=== PATIENT | male | born 1970 | race Hispanic/Latino ===

== ENCOUNTER 2024-05-07 18:42 | Inpatient (IN) | payer OTHER ==
[~2024-05-07] VITALS: Ht 170.2 cm; Wt 69.4 kg
[2024-05-07 19:35] LABS: BASOPHILS % 0.3 % (0.0-1.0); EOSINOPHILS # (AUTO) 0.1 (0.0-0.4); EOSINOPHILS % 0.6 % (0.0-6.0); HEMOGLOBIN 9.5 g/dL (14.0-18.0); LYMPHOCYTES # (AUTO) 1.8 (1.0-3.2); LYMPHOCYTES % 12.2 % (18.0-39.1); MEAN CORPUSCULAR HEMOGLOBIN 30.4 pg (28-32); MEAN CORPUSCULAR HGB CONC 32.8 g/dL (31-35); MEAN CORPUSCULAR VOLUME 92.7 fL (81-99); MONOCYTES # (AUTO) 1.3 (0.2-0.8); MONOCYTES % 8.9 % (4.4-11.3); NEUTROPHILS # (AUTO) 11.2 (2.1-6.9); NEUTROPHILS % 77.4 % (38.7-80.0); PLATELET COUNT 333 x10e3/uL (140-360); RED BLOOD COUNT 3.13 x10e6/uL (4.3-5.7); RED CELL DISTRIBUTION WIDTH 12.7 % (11.7-14.4); WHITE BLOOD COUNT 14.49 x10e3/uL (4.8-10.8)
[2024-05-07 19:58] LABS: ALBUMIN 2.5 g/dL (3.5-5.0); ALBUMIN/GLOBULIN RATIO 0.4 (0.8-2.0); ANION GAP 16.5 mmol/L (8-16); BILIRUBIN,TOTAL 0.4 mg/dL (0.2-1.2); CALCIUM 9.5 mg/dL (8.4-10.2); CREATININE, SERUM 1.94 mg/dL (0.72-1.25); POTASSIUM 4.5 mmol/L (3.5-5.1); TOTAL PROTEIN 8.2 g/dL (6.5-8.1)
[2024-05-07] MEDS: SODIUM CHLORIDE 0.9% 1000ML 1,000 ML IV STA (20:38)
[2024-05-07] MEDS: ACETAMINOPHEN 325 MG TAB PO STA (20:39)
[2024-05-07 21:15] VITALS: PULSE 96; RESP 16
[2024-05-07 21:27] VITALS: TEMP 100
[2024-05-07] MEDS: SODIUM CHLORIDE 0.9% 1000ML 1,000 ML IV SCH (22:19)
[2024-05-07 23:14] VITALS: BP 116/67; PULSE 79; RESP 18; TEMP 99.3; O2SAT 100
[2024-05-07] MEDS ORDERED: METFORMIN HCL500 MG PO (23:35)
[2024-05-07] MEDS: ONDANSETRON HCL INJ 2MG/ML 2ML 2 MG/ML VIAL IV PRN (23:50)
[2024-05-07] MEDS: Morphine 4mg INJECTION 4 MG/ML INJ IV PRN (23:51)
[2024-05-08] VITALS (10 sets, daily range): BP systolic 112–139; BP diastolic 63–94; PULSE 67–96; RESP 16–18; TEMP 97.6–100.6; O2SAT 95–100
[2024-05-08] MEDS ORDERED: DOCUSATE SODIUM 100 MG CAP PO PRN (00:15)
[2024-05-08] MEDS ORDERED: DEXTROSE 50% SYRINGE 50 ML IV PRN (00:15)
[2024-05-08] MEDS ORDERED: GUAIFENESIN/DEXTROMETHORPHAN LIQD 5 ML UDC PO PRN (00:15)
[2024-05-08] MEDS ORDERED: HYDRALAZINE HCL 20 MG/ML VIAL IV PRN (00:15)
[2024-05-08] MEDS ORDERED: MAGNESIUM/ALUMINUM/SIMETHICONE 30 ML UDC PO PRN (00:15)
[2024-05-08] MEDS ORDERED: Vancomycin IV 1 GM in SODIUM CHLORIDE 0.9% 250ML 250 ML IV ONE (00:30)
[2024-05-08] MEDS: Vancomycin IV 1 GM in SODIUM CHLORIDE 0.9% 250ML 250 ML IV SCH (03:48)
[2024-05-08 06:49] LABS: ALBUMIN 1.9 g/dL (3.5-5.0); ALBUMIN/GLOBULIN RATIO 0.4 (0.8-2.0); ANION GAP 11.1 mmol/L (8-16); BILIRUBIN,TOTAL 0.3 mg/dL (0.2-1.2); CALCIUM 8.3 mg/dL (8.4-10.2); CREATININE, SERUM 1.52 mg/dL (0.72-1.25); POTASSIUM 4.1 mmol/L (3.5-5.1); TOTAL PROTEIN 6.4 g/dL (6.5-8.1)
[2024-05-08 07:16] LABS: BASOPHILS # (AUTO) 0.1 (0.0-0.1); BASOPHILS % 0.5 % (0.0-1.0); EOSINOPHILS # (AUTO) 0.3 (0.0-0.4); EOSINOPHILS % 2.7 % (0.0-6.0); HEMATOCRIT 24.2 % (38.2-49.6); HEMOGLOBIN 7.8 g/dL (14.0-18.0); LYMPHOCYTES # (AUTO) 2.1 (1.0-3.2); LYMPHOCYTES % 17.7 % (18.0-39.1); MEAN CORPUSCULAR HEMOGLOBIN 30.1 pg (28-32); MEAN CORPUSCULAR HGB CONC 32.2 g/dL (31-35); MEAN CORPUSCULAR VOLUME 93.4 fL (81-99); MONOCYTES # (AUTO) 1.1 (0.2-0.8); NEUTROPHILS # (AUTO) 8.1 (2.1-6.9); NEUTROPHILS % 69.4 % (38.7-80.0); PLATELET COUNT 309 x10e3/uL (140-360); RED BLOOD COUNT 2.59 x10e6/uL (4.3-5.7); RED CELL DISTRIBUTION WIDTH 12.7 % (11.7-14.4); WHITE BLOOD COUNT 11.64 x10e3/uL (4.8-10.8)
[2024-05-08] MEDS: MULTIVITAMINS/MINERALS TAB PO SCH (09:18)
[2024-05-08] MEDS: INSULIN REGULAR, HUMAN 100 UNIT/1 ML SQ SCH (09:24)
[2024-05-08] MEDS: Morphine 4mg INJECTION 4 MG/ML INJ IV PRN (10:08)
[2024-05-08] MEDS: CHLORASEPTIC SPRAY 177 ML BTL MM PRN (12:14)
[2024-05-08] MEDS: ENOXAPARIN SOD INJ 40 MG/0.4 ML SYR SC SCH (17:22)
[2024-05-08] MEDS: POVIDONE IODINE 10% 120 ML BTL EXT SCH (18:09)
[2024-05-09] MEDS: ACETAMINOPHEN 325 MG TAB PO PRN (00:32)
[2024-05-09 03:21] VITALS: BP 119/75; PULSE 73; RESP 18; TEMP 98.5; O2SAT 96
[2024-05-09 08:01] VITALS: BP 106/69; PULSE 78; RESP 16; TEMP 98.1; O2SAT 99
[2024-05-09 08:07] LABS: BASOPHILS # (AUTO) 0.1 (0.0-0.1); BASOPHILS % 0.7 % (0.0-1.0); EOSINOPHILS # (AUTO) 0.4 (0.0-0.4); EOSINOPHILS % 3.8 % (0.0-6.0); HEMATOCRIT 24.4 % (38.2-49.6); HEMOGLOBIN 7.6 g/dL (14.0-18.0); LYMPHOCYTES # (AUTO) 1.5 (1.0-3.2); LYMPHOCYTES % 12.8 % (18.0-39.1); MEAN CORPUSCULAR HEMOGLOBIN 29.7 pg (28-32); MEAN CORPUSCULAR HGB CONC 31.1 g/dL (31-35); MEAN CORPUSCULAR VOLUME 95.3 fL (81-99); MONOCYTES % 8.9 % (4.4-11.3); NEUTROPHILS # (AUTO) 8.3 (2.1-6.9); NEUTROPHILS % 73.1 % (38.7-80.0); PLATELET COUNT 291 x10e3/uL (140-360); RED BLOOD COUNT 2.56 x10e6/uL (4.3-5.7); RED CELL DISTRIBUTION WIDTH 12.6 % (11.7-14.4); WHITE BLOOD COUNT 11.37 x10e3/uL (4.8-10.8)
[2024-05-09 08:27] LABS: ANION GAP 12.4 mmol/L (8-16); CALCIUM 8.4 mg/dL (8.4-10.2); CREATININE, SERUM 1.44 mg/dL (0.72-1.25); POTASSIUM 4.4 mmol/L (3.5-5.1)
[2024-05-09 08:30] VITALS: BP 106/69; PULSE 78; RESP 16; TEMP 98.1; O2SAT 99
[2024-05-09 08:47] LABS: FERRITIN 677.57 ng/mL (21.81-274.66)
[2024-05-09 12:25] VITALS: BP 124/78; PULSE 78; RESP 16; TEMP 98.1; O2SAT 99
[2024-05-09] MEDS: IRON SUCROSE 100 MG in SODIUM CHLORIDE 0.9% 100 ML IV ONE (15:47)
[2024-05-09 15:53] VITALS: BP 121/77; PULSE 78; RESP 16; TEMP 98.3; O2SAT 98
[2024-05-09 19:53] VITALS: BP 128/72; PULSE 85; RESP 21; TEMP 98.6; O2SAT 100
[2024-05-10] VITALS (8 sets, daily range): BP systolic 129–157; BP diastolic 71–89; PULSE 75–86; RESP 17–20; TEMP 97.5–98.6; O2SAT 97–100
[2024-05-10] MEDS ORDERED: POLYETHYLENE GLYCOL 3350 17 GM PACK PO PRN (16:30)
[2024-05-10] MEDS ORDERED: ALBUTEROL SULF 0.083% NEB SOLN 3 ML NEB NEB PRN (16:30)
[2024-05-10] MEDS: DOCUSATE SODIUM 100 MG CAP PO SCH (17:00)
[2024-05-11] VITALS (10 sets, daily range): BP systolic 134–161; BP diastolic 76–92; PULSE 74–89; RESP 16–18; TEMP 97.9–98.9; O2SAT 95–100
[2024-05-11] MEDS: FERROUS SULFATE 325 MG TAB PO SCH (09:00)
[2024-05-11] MEDS ORDERED: TROLAMINE SALICYLATE 35.4 GM CR TP SCH (17:00)
[2024-05-11] MEDS: TROLAMINE SALICYLATE 35.4 GM CR TP SCH (17:24)
[2024-05-12 04:00] VITALS: BP 156/80; PULSE 76; RESP 17; TEMP 97.8; O2SAT 98
[2024-05-12 06:32] LABS: BASOPHILS # (AUTO) 0.1 (0.0-0.1); BASOPHILS % 0.8 % (0.0-1.0); EOSINOPHILS # (AUTO) 0.3 (0.0-0.4); HEMATOCRIT 26.2 % (38.2-49.6); HEMOGLOBIN 8.4 g/dL (14.0-18.0); LYMPHOCYTES % 18.9 % (18.0-39.1); MEAN CORPUSCULAR HEMOGLOBIN 29.7 pg (28-32); MEAN CORPUSCULAR HGB CONC 32.1 g/dL (31-35); MEAN CORPUSCULAR VOLUME 92.6 fL (81-99); MONOCYTES # (AUTO) 0.7 (0.2-0.8); MONOCYTES % 6.9 % (4.4-11.3); NEUTROPHILS # (AUTO) 7.3 (2.1-6.9); NEUTROPHILS % 68.9 % (38.7-80.0); RED BLOOD COUNT 2.83 x10e6/uL (4.3-5.7); RED CELL DISTRIBUTION WIDTH 12.4 % (11.7-14.4); WHITE BLOOD COUNT 10.53 x10e3/uL (4.8-10.8)
[2024-05-12 06:36] LABS: PLATELET COUNT 414 x10e3/uL (140-360)
[2024-05-12] MEDS ORDERED: MIDAZOLAM HCL 2 MG/2 ML VIAL ONE (07:00)
[2024-05-12] MEDS ORDERED: FENTANYL CITRATE/PF 100MCG/2 ML INJ ONE (07:00)
[2024-05-12 07:02] LABS: ANION GAP 15.2 mmol/L (8-16); CALCIUM 9.2 mg/dL (8.4-10.2); CREATININE, SERUM 1.23 mg/dL (0.72-1.25); POTASSIUM 4.2 mmol/L (3.5-5.1)
[2024-05-12] MEDS ORDERED: ACETAMINOPHEN 1000 MG/100 ML 100 ML IV ONE (07:05)
[2024-05-12] MEDS ORDERED: BUPIVACAINE HCL 0.5% INJ 30 ML VIAL INJ ONE (07:53)
[2024-05-12] MEDS: HYDROMORPHONE 1MG/1ML INJ ONE (08:38)
[2024-05-12 09:46] VITALS: PULSE 76; RESP 18; O2SAT 98
[2024-05-12] MEDS ORDERED: SEVOFLURANE INHAL SOLN 250 ML PEN BTL ONE (11:33)
[2024-05-12] MEDS ORDERED: ONDANSETRON HCL INJ 2MG/ML 2ML 2 MG/ML VIAL ONE (11:33)
[2024-05-12] MEDS ORDERED: DEXAMETHASONE SOD PHOS INJ 4 MG/ML SDV ONE (11:33)
[2024-05-12] MEDS ORDERED: LIDOCAINE HCL 2% LOCAL INJ 5 ML SDV VIAL INJ ONE (11:33)
[2024-05-12] MEDS ORDERED: PROPOFOL IV EMULSION 10 MG/ML 20 ML VIAL ONE (11:33)
[2024-05-12] MEDS ORDERED: EPHEDRINE SULFATE INJ 50 MG/ML VIAL ONE (11:33)
[2024-05-12 13:50] VITALS: BP 153/83; PULSE 85; RESP 17; TEMP 97.5; O2SAT 97
[2024-05-12 20:00] VITALS: BP 156/93; PULSE 85; RESP 18; TEMP 98; O2SAT 99
[2024-05-12 20:16] VITALS: PULSE 82; RESP 16; O2SAT 99
[2024-05-12 21:00] VITALS: BP 156/93; PULSE 85; RESP 18; TEMP 98; O2SAT 99
[2024-05-13] VITALS (10 sets, daily range): BP systolic 139–169; BP diastolic 72–98; PULSE 76–95; RESP 16–20; TEMP 97.5–98.7; O2SAT 96–100
[2024-05-13] MEDS: SODIUM CHLORIDE 0.9% 250ML 250 ML ONE (02:12)
[2024-05-13] MEDS: Morphine 2mg Syringe 2 MG/ML SYR ONE (05:15)
[2024-05-13 06:01] LABS: BASOPHILS % 0.3 % (0.0-1.0); EOSINOPHILS % 0.1 % (0.0-6.0); HEMATOCRIT 25.6 % (38.2-49.6); HEMOGLOBIN 8.2 g/dL (14.0-18.0); LYMPHOCYTES # (AUTO) 1.9 (1.0-3.2); LYMPHOCYTES % 12.1 % (18.0-39.1); MEAN CORPUSCULAR HEMOGLOBIN 30.1 pg (28-32); MEAN CORPUSCULAR VOLUME 94.1 fL (81-99); MONOCYTES # (AUTO) 1.1 (0.2-0.8); MONOCYTES % 7.4 % (4.4-11.3); NEUTROPHILS % 78.7 % (38.7-80.0); PLATELET COUNT 438 x10e3/uL (140-360); RED BLOOD COUNT 2.72 x10e6/uL (4.3-5.7); RED CELL DISTRIBUTION WIDTH 12.4 % (11.7-14.4); WHITE BLOOD COUNT 15.23 x10e3/uL (4.8-10.8)
[2024-05-13 06:29] LABS: ALBUMIN 2.1 g/dL (3.5-5.0); ALBUMIN/GLOBULIN RATIO 0.4 (0.8-2.0); ANION GAP 14.1 mmol/L (8-16); BILIRUBIN,TOTAL 0.2 mg/dL (0.2-1.2); CALCIUM 9.1 mg/dL (8.4-10.2); CREATININE, SERUM 1.35 mg/dL (0.72-1.25); POTASSIUM 4.1 mmol/L (3.5-5.1); TOTAL PROTEIN 7.3 g/dL (6.5-8.1)
[2024-05-13 14:44] LABS: FREE T4 (FREE THYROXINE) 1.16 ng/dL (0.8-1.8); THYROID STIMULATING HORMONE 1.467 uIU/mL (0.350-4.940)
[2024-05-13] MEDS: INSULIN LISPRO 100 UNIT/1 ML 3ML VIAL SQ SCH ×2 (16:30→17:21)
[2024-05-13] MEDS: Morphine 2mg Syringe 2 MG/ML SYR IV PRN (20:14)
[2024-05-13] MEDS ORDERED: INSULIN GLARGINE 100 UNITS/ML VIAL SQ SCH (21:00)
[2024-05-13] MEDS: INSULIN GLARGINE 100 UNITS/ML VIAL SQ SCH (21:00)
[2024-05-14] VITALS (8 sets, daily range): BP systolic 131–145; BP diastolic 70–79; PULSE 80–89; RESP 17–20; TEMP 97.8–98.8; O2SAT 95–100
[2024-05-14] MEDS: INSULIN LISPRO 100 UNIT/1 ML 3ML VIAL SQ SCH (16:30)
[2024-05-14] MEDS: MELATONIN 3 MG TAB PO PRN (20:34)
[2024-05-15] VITALS (9 sets, daily range): BP systolic 108–127; BP diastolic 52–76; PULSE 75–95; RESP 18–19; TEMP 97.7–98.9; O2SAT 95–100
[2024-05-15 06:06] LABS: BASOPHILS # (AUTO) 0.1 (0.0-0.1); BASOPHILS % 0.5 % (0.0-1.0); EOSINOPHILS # (AUTO) 0.2 (0.0-0.4); EOSINOPHILS % 1.5 % (0.0-6.0); HEMATOCRIT 22.5 % (38.2-49.6); HEMOGLOBIN 7.2 g/dL (14.0-18.0); LYMPHOCYTES # (AUTO) 2.5 (1.0-3.2); LYMPHOCYTES % 16.5 % (18.0-39.1); MEAN CORPUSCULAR HEMOGLOBIN 30.4 pg (28-32); MEAN CORPUSCULAR VOLUME 94.9 fL (81-99); MONOCYTES # (AUTO) 1.3 (0.2-0.8); MONOCYTES % 8.5 % (4.4-11.3); NEUTROPHILS # (AUTO) 10.6 (2.1-6.9); NEUTROPHILS % 71.2 % (38.7-80.0); PLATELET COUNT 435 x10e3/uL (140-360); RED BLOOD COUNT 2.37 x10e6/uL (4.3-5.7); RED CELL DISTRIBUTION WIDTH 12.9 % (11.7-14.4); WHITE BLOOD COUNT 14.93 x10e3/uL (4.8-10.8)
[2024-05-15] MEDS: MEROPENEM 1 GM in SODIUM CHLORIDE 0.9% 100 ML IV SCH (16:19)
[2024-05-15] MEDS: HYDROCODONE/APAP 5MG-325MG TAB PO PRN (22:01)
[2024-05-16] VITALS (9 sets, daily range): BP systolic 119–144; BP diastolic 72–91; PULSE 76–89; RESP 16–20; TEMP 97.5–98.3; O2SAT 96–100
[2024-05-16] MEDS: INSULIN LISPRO 100 UNIT/1 ML 3ML VIAL SQ SCH (16:46)
[2024-05-16] MEDS: INSULIN GLARGINE 100 UNITS/ML VIAL SQ SCH (20:49)
[2024-05-17] VITALS (11 sets, daily range): BP systolic 99–158; BP diastolic 59–91; PULSE 70–89; RESP 16–18; TEMP 97.3–98.5; O2SAT 96–100
[2024-05-17] MEDS: Morphine 2mg Syringe 2 MG/ML SYR IV PRN (00:56)
[2024-05-17 06:10] LABS: BASOPHILS # (AUTO) 0.1 (0.0-0.1); BASOPHILS % 0.9 % (0.0-1.0); EOSINOPHILS # (AUTO) 0.3 (0.0-0.4); EOSINOPHILS % 3.8 % (0.0-6.0); HEMATOCRIT 22.1 % (38.2-49.6); LYMPHOCYTES # (AUTO) 2.5 (1.0-3.2); MEAN CORPUSCULAR HEMOGLOBIN 29.6 pg (28-32); MEAN CORPUSCULAR HGB CONC 31.2 g/dL (31-35); MEAN CORPUSCULAR VOLUME 94.8 fL (81-99); MONOCYTES # (AUTO) 0.7 (0.2-0.8); MONOCYTES % 8.7 % (4.4-11.3); NEUTROPHILS # (AUTO) 4.4 (2.1-6.9); NEUTROPHILS % 54.4 % (38.7-80.0); PLATELET COUNT 471 x10e3/uL (140-360); RED BLOOD COUNT 2.33 x10e6/uL (4.3-5.7); WHITE BLOOD COUNT 8.15 x10e3/uL (4.8-10.8)
[2024-05-17 06:15] LABS: HEMOGLOBIN 6.9 g/dL (14.0-18.0)
[2024-05-17] MEDS: SODIUM CHLORIDE 0.9% 250ML 250 ML IV ONE (11:20)
[2024-05-18] VITALS (7 sets, daily range): BP systolic 113–148; BP diastolic 68–82; PULSE 71–85; RESP 16–19; TEMP 97.6–98.2; O2SAT 97–100
[2024-05-18 05:59] LABS: BASOPHILS % 0.4 % (0.0-1.0); EOSINOPHILS # (AUTO) 0.4 (0.0-0.4); EOSINOPHILS % 4.9 % (0.0-6.0); HEMATOCRIT 28.9 % (38.2-49.6); LYMPHOCYTES # (AUTO) 2.2 (1.0-3.2); LYMPHOCYTES % 27.5 % (18.0-39.1); MEAN CORPUSCULAR HEMOGLOBIN 29.5 pg (28-32); MEAN CORPUSCULAR HGB CONC 31.1 g/dL (31-35); MEAN CORPUSCULAR VOLUME 94.8 fL (81-99); MONOCYTES # (AUTO) 0.6 (0.2-0.8); MONOCYTES % 7.2 % (4.4-11.3); NEUTROPHILS # (AUTO) 4.6 (2.1-6.9); NEUTROPHILS % 58.5 % (38.7-80.0); PLATELET COUNT 522 x10e3/uL (140-360); RED BLOOD COUNT 3.05 x10e6/uL (4.3-5.7); RED CELL DISTRIBUTION WIDTH 13.2 % (11.7-14.4); WHITE BLOOD COUNT 7.88 x10e3/uL (4.8-10.8)
[2024-05-18] MEDS: SILVER NITRATE SWABS TOP ONE (13:30)
[2024-05-18] MEDS ORDERED: MEROPENEM1 GM IV (16:05)
[2024-05-18] MEDS ORDERED: INSULIN GL100 UNIT/2 SQ (16:05)
[2024-05-18] MEDS ORDERED: INSULIN AS100 UNIT/3 SQ (16:05)
[2024-05-18] MEDS ORDERED: Tylenol #3 PO (16:05)
[2024-05-18] MEDS ORDERED: FERROUS SULFAT325 MG PO (16:10)
[2024-05-18] MEDS ORDERED: ONDANSETRON HCL 4 MG ORAL DISINTEGRATING TAB PO PRN (17:30)
[2024-05-18] MEDS ORDERED: INSULIN GLARGINE 100 UNITS/ML VIAL SQ SCH (21:00)
== END 2024-05-18 18:30 | disposition home or self-care (01) | DRG 854 ==
LOC: ER 18:49 → ERHOLD 19:48 → MED/SURG3 21:44
PROVIDERS: ADMIT Internal Medicine Critical Care Medicine; ATTEND Internal Medicine Critical Care Medicine
PROC: 3E0333Z Introduction of Anti-inflammatory into Peripheral Vein, Percutaneous Approach (ICD-10-PCS; 2024-05-07)
PROC: 0KBW0ZZ Excision of Left Foot Muscle, Open Approach (ICD-10-PCS; 2024-05-12)
PROC: 0Y6W0Z0 Detachment at Left 4th Toe, Complete, Open Approach (ICD-10-PCS; principal; 2024-05-12 07:17)
PROC: 0Y6X0Z0 Detachment at Right 5th Toe, Complete, Open Approach (ICD-10-PCS; 2024-05-12 07:17)
PROC: 02HV33Z Insertion of Infusion Device into Superior Vena Cava, Percutaneous Approach (ICD-10-PCS; 2024-05-15)
PROC: 30233N1 Transfusion of Nonautologous Red Blood Cells into Peripheral Vein, Percutaneous Approach (ICD-10-PCS; 2024-05-17)
DX: A41.9 Sepsis, unspecified organism (principal); E11.52 Type 2 diabetes mellitus with diabetic peripheral angiopathy with gangrene; E46 Unspecified protein-calorie malnutrition; N17.9 Acute kidney failure, unspecified; L03.116 Cellulitis of left lower limb; E11.69 Type 2 diabetes mellitus with other specified complication; M86.9 Osteomyelitis, unspecified; E11.621 Type 2 diabetes mellitus with foot ulcer; L02.612 Cutaneous abscess of left foot; L97.528 Non-pressure chronic ulcer of other part of left foot with other specified severity; B95.1 Streptococcus, group B, as the cause of diseases classified elsewhere; B96.5 Pseudomonas (aeruginosa) (mallei) (pseudomallei) as the cause of diseases classified elsewhere; E88.09 Other disorders of plasma-protein metabolism, not elsewhere classified; I12.9 Hypertensive chronic kidney disease with stage 1 through stage 4 chronic kidney disease, or unspecified chronic kidney disease; E11.22 Type 2 diabetes mellitus with diabetic chronic kidney disease; E11.40 Type 2 diabetes mellitus with diabetic neuropathy, unspecified; N18.2 Chronic kidney disease, stage 2 (mild); D63.1 Anemia in chronic kidney disease; M19.011 Primary osteoarthritis, right shoulder; Z83.3 Family history of diabetes mellitus; Z68.24 Body mass index [BMI] 24.0-24.9, adult
CPT/HCPCS: 36415; 36569; 71045; 71046; 80048; 80053; 80202; 82728; 82948; 83036; 83540; 83605; 83690; 84439; 84443; 84466; 85025; 86850; 86900; 86920; 87040; 87071; 87075; 87186; 87205; 88304; 88305; 88311; 93005; 93971; 94799; 97605; 97606; 99252; 99284; J1100; J1171; J1650; J1756; J1815; J2003; J2185; J2250; J2270; J2405; J2543; J7030; J7050; P9016

== ENCOUNTER → 2024-05-20 | Outpatient (REF) | payer OTHER ==
[~2024-05-20] MED LIST: FERROUS SULFAT325 MG PO; INSULIN AS100 UNIT/3 SQ; INSULIN GL100 UNIT/2 SQ; MEROPENEM1 GM IV; METFORMIN HCL500 MG PO; Tylenol #3 PO
== END ==
LOC: WCC 12:08
PROVIDERS: ATTEND Internal Medicine Infectious Disease
DX: E11.621 Type 2 diabetes mellitus with foot ulcer (principal); M86.172 Other acute osteomyelitis, left ankle and foot; L97.524 Non-pressure chronic ulcer of other part of left foot with necrosis of bone

== ENCOUNTER → 2024-05-22 | Outpatient (REF) | payer OTHER | LOC: WCC 10:04 | PROVIDERS: ATTEND Internal Medicine Infectious Disease | DX: E11.621 Type 2 diabetes mellitus with foot ulcer (principal); M86.172 Other acute osteomyelitis, left ankle and foot; L97.524 Non-pressure chronic ulcer of other part of left foot with necrosis of bone ==

== ENCOUNTER → 2024-05-25 | Outpatient (REF) | payer OTHER ==
[~2024-05-25] MED LIST changes: +MINERAL OIL/PETROLAT/GLYCERI 6OZ BTL ONE
== END ==
LOC: WCC 13:45
PROVIDERS: ATTEND Internal Medicine Infectious Disease
DX: E11.621 Type 2 diabetes mellitus with foot ulcer (principal); L97.524 Non-pressure chronic ulcer of other part of left foot with necrosis of bone
CPT/HCPCS: 36415; 82948

== ENCOUNTER → 2024-05-27 | Outpatient (REF) | payer OTHER ==
[~2024-05-27] MED LIST changes: -MINERAL OIL/PETROLAT/GLYCERI 6OZ BTL ONE
== END ==
LOC: WCC 10:16
PROVIDERS: ATTEND Internal Medicine Infectious Disease
DX: E11.621 Type 2 diabetes mellitus with foot ulcer (principal); L97.524 Non-pressure chronic ulcer of other part of left foot with necrosis of bone

== ENCOUNTER → 2024-05-29 | Outpatient (REF) | payer OTHER | LOC: WCC 13:42 | PROVIDERS: ATTEND Internal Medicine Infectious Disease | DX: E11.621 Type 2 diabetes mellitus with foot ulcer (principal); L97.524 Non-pressure chronic ulcer of other part of left foot with necrosis of bone ==

== ENCOUNTER → 2024-06-02 | Outpatient (REF) | payer OTHER | LOC: WCC 11:12 | PROVIDERS: ATTEND Nurse Practitioner Family | DX: E11.621 Type 2 diabetes mellitus with foot ulcer (principal); L97.524 Non-pressure chronic ulcer of other part of left foot with necrosis of bone ==

== ENCOUNTER → 2024-06-04 | Outpatient (REF) | payer OTHER | LOC: WCC 08:00 | PROVIDERS: ATTEND Nurse Practitioner Family | DX: E11.621 Type 2 diabetes mellitus with foot ulcer (principal); M86.172 Other acute osteomyelitis, left ankle and foot; L97.524 Non-pressure chronic ulcer of other part of left foot with necrosis of bone ==

== ENCOUNTER → 2024-06-09 | Outpatient (REF) | payer OTHER | LOC: WCC 09:15 | PROVIDERS: ATTEND Internal Medicine Infectious Disease | DX: E11.621 Type 2 diabetes mellitus with foot ulcer (principal); L97.524 Non-pressure chronic ulcer of other part of left foot with necrosis of bone ==

== ENCOUNTER → 2024-06-12 | Outpatient (REF) | payer OTHER | LOC: WCC 09:11 | PROVIDERS: ATTEND Plastic Surgery | DX: E11.621 Type 2 diabetes mellitus with foot ulcer (principal); M86.172 Other acute osteomyelitis, left ankle and foot; L97.524 Non-pressure chronic ulcer of other part of left foot with necrosis of bone ==

== ENCOUNTER → 2024-06-16 | Outpatient (REF) | payer OTHER | LOC: WCC 12:17 | PROVIDERS: ATTEND Nurse Practitioner Family | DX: E11.621 Type 2 diabetes mellitus with foot ulcer (principal); M86.172 Other acute osteomyelitis, left ankle and foot; L97.524 Non-pressure chronic ulcer of other part of left foot with necrosis of bone ==

== ENCOUNTER → 2024-06-19 | Outpatient (REF) | payer OTHER | LOC: WCC 09:41 | PROVIDERS: ATTEND Internal Medicine Infectious Disease | DX: E11.621 Type 2 diabetes mellitus with foot ulcer (principal); M86.172 Other acute osteomyelitis, left ankle and foot; L97.524 Non-pressure chronic ulcer of other part of left foot with necrosis of bone ==

== ENCOUNTER → 2024-06-23 | Outpatient (REF) | payer OTHER | LOC: WCC 10:04 | PROVIDERS: ATTEND Internal Medicine Infectious Disease | DX: E11.621 Type 2 diabetes mellitus with foot ulcer (principal); M86.172 Other acute osteomyelitis, left ankle and foot; L97.524 Non-pressure chronic ulcer of other part of left foot with necrosis of bone ==

== ENCOUNTER → 2024-06-30 | Outpatient (REF) | payer OTHER | LOC: WCC 10:01 | PROVIDERS: ATTEND Internal Medicine Infectious Disease | DX: E11.621 Type 2 diabetes mellitus with foot ulcer (principal); M86.172 Other acute osteomyelitis, left ankle and foot; L97.524 Non-pressure chronic ulcer of other part of left foot with necrosis of bone ==

== ENCOUNTER 2024-09-08 16:36 | Inpatient (IN) | payer OTHER ==
[~2024-09-08] VITALS: Ht 170.2 cm; Wt 70.3 kg
[2024-09-08] MEDS: SODIUM CHLORIDE 0.9% 1000ML 1,000 ML IV ONE (17:17)
[2024-09-08 17:18] LABS: BASOPHILS % 0.5 % (0.0-1.0); EOSINOPHILS % 0.3 % (0.0-6.0); HEMATOCRIT 25.2 % (38.2-49.6); HEMOGLOBIN 8.2 g/dL (14.0-18.0); LYMPHOCYTES # (AUTO) 1.1 (1.0-3.2); LYMPHOCYTES % 15.2 % (18.0-39.1); MEAN CORPUSCULAR HEMOGLOBIN 27.2 pg (28-32); MEAN CORPUSCULAR HGB CONC 32.5 g/dL (31-35); MEAN CORPUSCULAR VOLUME 83.7 fL (81-99); MONOCYTES # (AUTO) 0.8 (0.2-0.8); MONOCYTES % 10.6 % (4.4-11.3); NEUTROPHILS # (AUTO) 5.4 (2.1-6.9); NEUTROPHILS % 72.7 % (38.7-80.0); PLATELET COUNT 351 x10e3/uL (140-360); RED BLOOD COUNT 3.01 x10e6/uL (4.3-5.7); RED CELL DISTRIBUTION WIDTH 13.7 % (11.7-14.4); WHITE BLOOD COUNT 7.42 x10e3/uL (4.8-10.8)
[2024-09-08] MEDS: ACETAMINOPHEN 325 MG TAB PO ONE (17:20)
[2024-09-08 17:32] LABS: INR 1.05; PROTHROMBIN TIME 14.3 seconds (11.9-14.5)
[2024-09-08 17:33] LABS: PARTIAL THROMBOPLASTIN TIME 44.2 seconds (23.8-35.5)
[2024-09-08 17:41] LABS: ALBUMIN 2.3 g/dL (3.5-5.0); ALBUMIN/GLOBULIN RATIO 0.4 (0.8-2.0); ANION GAP 14.3 mmol/L (8-16); BILIRUBIN,TOTAL 0.3 mg/dL (0.2-1.2); CALCIUM 9.3 mg/dL (8.4-10.2); CREATININE, SERUM 1.68 mg/dL (0.72-1.25); POTASSIUM 4.3 mmol/L (3.5-5.1); TOTAL PROTEIN 7.7 g/dL (6.5-8.1)
[2024-09-08] MEDS ORDERED: ACETAMINOPHEN 325 MG TAB PO PRN (19:00)
[2024-09-08] MEDS ORDERED: ONDANSETRON HCL INJ 2MG/ML 2ML 2 MG/ML VIAL IV PRN (19:00)
[2024-09-08] MEDS ORDERED: DEXTROSE 50% SYRINGE 50 ML IV PRN (19:15)
[2024-09-08] MEDS ORDERED: SODIUM CHLORIDE 0.9% 1000ML 1,000 ML ONE (19:23)
[2024-09-08] MEDS: Vancomycin IV 1 GM in SODIUM CHLORIDE 0.9% 250ML 250 ML IV SCH (19:28)
[2024-09-08] MEDS: SODIUM CHLORIDE 0.9% 1000ML 1,000 ML IV SCH (19:29)
[2024-09-08 19:45] VITALS: TEMP 98.5
[2024-09-08] MEDS: INSULIN REGULAR, HUMAN 100 UNIT/1 ML SQ SCH (20:52)
[2024-09-08 21:22] VITALS: PULSE 77; RESP 18
[2024-09-08 22:10] VITALS: BP 124/79; PULSE 74; RESP 18; TEMP 98.2; O2SAT 100
[2024-09-08 23:41] LABS: BILIRUBIN,URINE NEGATIVE (NEGATIVE); CLARITY,URINE SL CLOUDY (CLEAR); COLOR,URINE YELLOW (YELLOW); GLUCOSE, URINE 2+ (NEGATIVE); KETONES,URINE NEGATIVE (NEGATIVE); LEUKOCYTE ESTERASE ,URINE NEGATIVE (NEGATIVE); NITRITE,URINE NEGATIVE (NEGATIVE); PH,URINE 5.5 (5 - 7); PROTEIN,URINE DIPSTICK >=300 (NEGATIVE); URINE UROBILINOGEN 0.2 mg/dL (0.2 - 1)
[2024-09-08 23:52] LABS: BACTERIA,URINE MANY /HPF
[2024-09-08 23:53] LABS: EPITHELIAL CELLS,URINE FEW /LPF
[2024-09-09] VITALS (7 sets, daily range): BP systolic 121–156; BP diastolic 67–82; PULSE 74–90; RESP 16–19; TEMP 97.8–99.7; O2SAT 98–100
[2024-09-09 06:40] LABS: BASOPHILS # (AUTO) 0.1 (0.0-0.1); BASOPHILS % 0.9 % (0.0-1.0); EOSINOPHILS # (AUTO) 0.2 (0.0-0.4); HEMATOCRIT 23.1 % (38.2-49.6); LYMPHOCYTES # (AUTO) 1.3 (1.0-3.2); LYMPHOCYTES % 19.2 % (18.0-39.1); MEAN CORPUSCULAR HEMOGLOBIN 27.4 pg (28-32); MEAN CORPUSCULAR VOLUME 85.6 fL (81-99); MONOCYTES # (AUTO) 0.9 (0.2-0.8); MONOCYTES % 13.8 % (4.4-11.3); NEUTROPHILS # (AUTO) 4.1 (2.1-6.9); NEUTROPHILS % 62.6 % (38.7-80.0); PLATELET COUNT 333 x10e3/uL (140-360); RED CELL DISTRIBUTION WIDTH 13.7 % (11.7-14.4); WHITE BLOOD COUNT 6.61 x10e3/uL (4.8-10.8)
[2024-09-09 06:45] LABS: HEMOGLOBIN 7.4 g/dL (14.0-18.0)
[2024-09-09 07:03] LABS: ALBUMIN 2.2 g/dL (3.5-5.0); ALBUMIN/GLOBULIN RATIO 0.5 (0.8-2.0); ANION GAP 15.1 mmol/L (8-16); BILIRUBIN,TOTAL 0.3 mg/dL (0.2-1.2); CALCIUM 9.2 mg/dL (8.4-10.2); CREATININE, SERUM 1.29 mg/dL (0.72-1.25); POTASSIUM 4.1 mmol/L (3.5-5.1)
[2024-09-09] MEDS ORDERED: BENZONATATE 100 MG CAP PO PRN (09:15)
[2024-09-09] MEDS ORDERED: DEXTROSE 50% SYRINGE 50 ML IV PRN (09:15)
[2024-09-09] MEDS ORDERED: POTASSIUM CHLORIDE 20 MEQ TAB CR PO PRN (09:15)
[2024-09-09] MEDS ORDERED: SIMETHICONE 80 MG CHEW PO PRN (09:15)
[2024-09-09] MEDS ORDERED: DIPHENHYDRAMINE HCL 25 MG CAP PO PRN (09:15)
[2024-09-09] MEDS ORDERED: LIDOCAINE 4% PATCH TP PRN (09:15)
[2024-09-09] MEDS ORDERED: ALBUTEROL/IPRATROPIUM 3 ML NEB NEB PRN (09:15)
[2024-09-09] MEDS ORDERED: DOCUSATE SODIUM 100 MG CAP PO PRN (09:15)
[2024-09-09 09:53] LABS: FERRITIN 795.31 ng/mL (21.81-274.66)
[2024-09-09 10:16] LABS: FOLATE 14.8 ng/mL (7.0-15.4)
[2024-09-09] MEDS: ENOXAPARIN SOD INJ 40 MG/0.4 ML SYR SC SCH (17:20)
[2024-09-09] MEDS: COLLAGENASE 5 GM TUBE TOP SCH (18:36)
[2024-09-10 06:41] LABS: BASOPHILS # (AUTO) 0.1 (0.0-0.1); EOSINOPHILS # (AUTO) 0.2 (0.0-0.4); EOSINOPHILS % 3.7 % (0.0-6.0); HEMATOCRIT 22.6 % (38.2-49.6); HEMOGLOBIN 7.3 g/dL (14.0-18.0); LYMPHOCYTES # (AUTO) 1.8 (1.0-3.2); LYMPHOCYTES % 28.4 % (18.0-39.1); MEAN CORPUSCULAR HEMOGLOBIN 28.2 pg (28-32); MEAN CORPUSCULAR HGB CONC 32.3 g/dL (31-35); MEAN CORPUSCULAR VOLUME 87.3 fL (81-99); MONOCYTES # (AUTO) 0.9 (0.2-0.8); MONOCYTES % 14.3 % (4.4-11.3); NEUTROPHILS # (AUTO) 3.3 (2.1-6.9); NEUTROPHILS % 52.3 % (38.7-80.0); PLATELET COUNT 315 x10e3/uL (140-360); RED BLOOD COUNT 2.59 x10e6/uL (4.3-5.7); RED CELL DISTRIBUTION WIDTH 13.7 % (11.7-14.4); WHITE BLOOD COUNT 6.24 x10e3/uL (4.8-10.8)
[2024-09-10 07:00] LABS: ANION GAP 11.9 mmol/L (8-16); CALCIUM 8.6 mg/dL (8.4-10.2); CHOL/HDL RATIO 6.4 (3.9-4.7); CREATININE, SERUM 1.32 mg/dL (0.72-1.25); POTASSIUM 3.9 mmol/L (3.5-5.1)
[2024-09-10 07:23] LABS: THYROID STIMULATING HORMONE 2.865 uIU/mL (0.350-4.940)
[2024-09-10 07:49] VITALS: PULSE 75; RESP 18; O2SAT 100
[2024-09-10] MEDS: PANTOPRAZOLE SOD 40 MG TABEC PO SCH (08:23)
[2024-09-10] MEDS: IRON SUCROSE 100 MG in SODIUM CHLORIDE 0.9% 100 ML IV SCH (09:19)
[2024-09-10 09:58] VITALS: BP 156/82; PULSE 75; RESP 18; TEMP 97.8; O2SAT 100
[2024-09-10 12:32] VITALS: BP 135/81; PULSE 83; RESP 18; TEMP 98.2; O2SAT 100
[2024-09-10 15:55] VITALS: BP 128/68; PULSE 72; RESP 14; O2SAT 100
[2024-09-10 16:53] VITALS: BP 163/81; PULSE 74; RESP 20; TEMP 97.7; O2SAT 100
[2024-09-10 20:00] VITALS: BP 143/79; PULSE 76; RESP 19; TEMP 97.3; O2SAT 100
[2024-09-10] MEDS: ATORVASTATIN 20 MG TAB PO SCH (20:33)
[2024-09-11] VITALS (10 sets, daily range): BP systolic 110–155; BP diastolic 61–81; PULSE 70–85; RESP 18–19; TEMP 96.5–98.2; O2SAT 97–100
[2024-09-11] MEDS: MELATONIN 5 MG TABLET PO PRN (00:32)
[2024-09-11] MEDS: HYDROCODONE/APAP 5MG-325MG TAB PO PRN (00:33)
[2024-09-11] MEDS: SODIUM CHLORIDE 0.9% 1000ML 1,000 ML IV SCH (05:36)
[2024-09-11] MEDS: Vancomycin IV 1 GM in SODIUM CHLORIDE 0.9% 250ML 250 ML IV SCH (06:28)
[2024-09-11 06:37] LABS: BASOPHILS # (AUTO) 0.1 (0.0-0.1); BASOPHILS % 0.8 % (0.0-1.0); EOSINOPHILS # (AUTO) 0.2 (0.0-0.4); LYMPHOCYTES # (AUTO) 1.5 (1.0-3.2); LYMPHOCYTES % 22.9 % (18.0-39.1); MEAN CORPUSCULAR HEMOGLOBIN 27.5 pg (28-32); MEAN CORPUSCULAR HGB CONC 31.7 g/dL (31-35); MEAN CORPUSCULAR VOLUME 86.7 fL (81-99); MONOCYTES # (AUTO) 0.7 (0.2-0.8); MONOCYTES % 10.5 % (4.4-11.3); NEUTROPHILS # (AUTO) 4.1 (2.1-6.9); NEUTROPHILS % 62.3 % (38.7-80.0); PLATELET COUNT 288 x10e3/uL (140-360); RED CELL DISTRIBUTION WIDTH 13.8 % (11.7-14.4); WHITE BLOOD COUNT 6.64 x10e3/uL (4.8-10.8)
[2024-09-11 06:41] LABS: HEMATOCRIT 20.8 % (38.2-49.6); HEMOGLOBIN 6.6 g/dL (14.0-18.0)
[2024-09-11 07:05] LABS: ALBUMIN 2.1 g/dL (3.5-5.0); ALBUMIN/GLOBULIN RATIO 0.5 (0.8-2.0); BILIRUBIN,TOTAL 0.2 mg/dL (0.2-1.2); CALCIUM 8.6 mg/dL (8.4-10.2); CREATININE, SERUM 1.36 mg/dL (0.72-1.25); TOTAL PROTEIN 6.6 g/dL (6.5-8.1)
[2024-09-11] MEDS: CLOPIDOGREL BISULFATE 75 MG TAB PO SCH (10:11)
[2024-09-12] VITALS: BP 145/82; PULSE 78; RESP 18; TEMP 98.3; O2SAT 98
[2024-09-12 06:12] VITALS: PULSE 85; RESP 20; O2SAT 100
[2024-09-12 08:00] VITALS: BP 163/88; PULSE 79; RESP 17; TEMP 97.8; O2SAT 99
[2024-09-12 08:35] VITALS: BP 163/88; PULSE 97; RESP 18; TEMP 97.8; O2SAT 99
[2024-09-12] MEDS: HEPARIN SOD/SOD CHLORIDE 2,000 ML ONE (08:40)
[2024-09-12] MEDS: VERAPAMIL HCL 2.5 MG/ML 2 ML VIAL ONE (08:41)
[2024-09-12] MEDS: BIVALRIUDIN 250 MG/VIAL VIAL IV ONE (08:41)
[2024-09-12] MEDS: NITROGLYCERIN/D5W 200 MCG/ML 250 ML ONE (08:41)
[2024-09-12] MEDS: IOPAMIDOL 370 MG/ML 100 ML INFUS..BTL INJ ONE ×2 (08:41→08:42)
[2024-09-12] MEDS: HEPARIN SOD (PORCINE) 1000 UNIT/ML 30ML ONE (08:41)
[2024-09-12] MEDS: LIDOCAINE HCL 2% LOCAL 20 ML VIAL ONE ×2 (08:41→08:42)
[2024-09-12] MEDS: FENTANYL CITRATE/PF 100MCG/2 ML INJ ONE (08:42)
[2024-09-12] MEDS: SODIUM CHLORIDE 0.9% 1000ML 1,000 ML ONE (08:42)
[2024-09-12] MEDS: MIDAZOLAM HCL 2 MG/2 ML VIAL ONE ×2 (08:42)
[2024-09-12] MEDS: ASPIRIN 325 MG TAB ONE (08:44)
[2024-09-12] MEDS: CLOPIDOGREL BISULFATE 75 MG TAB ONE (08:45)
[2024-09-12] MEDS: LIDOCAINE 1% 10 ML MULTIDOSE VIAL IJ ONE (08:45)
[2024-09-12] MEDS: SODIUM CHLORIDE 0.9% 250ML 250 ML IV ONE (08:45)
[2024-09-12] MEDS: SODIUM CHLORIDE 0.9% 250ML 250 ML ONE (08:45)
[2024-09-12 09:06] LABS: BASOPHILS # (AUTO) 0.1 (0.0-0.1); BASOPHILS % 0.8 % (0.0-1.0); EOSINOPHILS # (AUTO) 0.3 (0.0-0.4); EOSINOPHILS % 4.4 % (0.0-6.0); HEMATOCRIT 27.6 % (38.2-49.6); HEMOGLOBIN 9.2 g/dL (14.0-18.0); LYMPHOCYTES # (AUTO) 1.9 (1.0-3.2); MEAN CORPUSCULAR HEMOGLOBIN 28.8 pg (28-32); MEAN CORPUSCULAR HGB CONC 33.3 g/dL (31-35); MEAN CORPUSCULAR VOLUME 86.3 fL (81-99); MONOCYTES # (AUTO) 0.8 (0.2-0.8); MONOCYTES % 9.7 % (4.4-11.3); NEUTROPHILS # (AUTO) 4.7 (2.1-6.9); NEUTROPHILS % 60.6 % (38.7-80.0); PLATELET COUNT 273 x10e3/uL (140-360); RED CELL DISTRIBUTION WIDTH 13.2 % (11.7-14.4); WHITE BLOOD COUNT 7.76 x10e3/uL (4.8-10.8)
[2024-09-12 09:32] LABS: CALCIUM 8.9 mg/dL (8.4-10.2); CREATININE, SERUM 1.17 mg/dL (0.72-1.25)
[2024-09-12 12:00] VITALS: BP 164/87; PULSE 77; RESP 18; TEMP 98; O2SAT 100
[2024-09-12] MEDS: LOSARTAN POTASSIUM 100 MG TAB PO SCH (15:25)
[2024-09-12 16:00] VITALS: BP 140/75; PULSE 72; RESP 17; TEMP 98; O2SAT 100
[2024-09-13] VITALS (10 sets, daily range): BP systolic 135–169; BP diastolic 78–96; PULSE 70–84; RESP 16–22; TEMP 97.3–99.8; O2SAT 96–100
[2024-09-14] VITALS (12 sets, daily range): BP systolic 151–188; BP diastolic 59–92; PULSE 68–91; RESP 18–19; TEMP 97.7–99.2; O2SAT 96–100
[2024-09-14] MEDS: FLUCONAZOLE 100 MG TAB PO SCH (15:00)
[2024-09-14] MEDS ORDERED: MICAFUNGIN SODIUM 100 MG IV SCH (16:00)
[2024-09-14] MEDS: MICAFUNGIN SODIUM 100 MG in SODIUM CHLORIDE 0.9% 100 ML IV SCH (18:29)
[2024-09-14] MEDS: HYDRALAZINE HCL 20 MG/ML VIAL IV PRN (22:33)
[2024-09-15] VITALS (7 sets, daily range): BP systolic 129–180; BP diastolic 73–93; PULSE 69–81; RESP 18–20; TEMP 97.6–99.2; O2SAT 96–100
[2024-09-15] MEDS: CARVEDILOL 12.5 MG TAB PO SCH ×2 (10:19→17:50)
[2024-09-15] MEDS: CARVEDILOL 12.5 MG TAB PO ONE (13:28)
[2024-09-15 13:49] LABS: BASOPHILS # (AUTO) 0.1 (0.0-0.1); BASOPHILS % 0.7 % (0.0-1.0); EOSINOPHILS # (AUTO) 0.2 (0.0-0.4); HEMATOCRIT 31.5 % (38.2-49.6); HEMOGLOBIN 10.1 g/dL (14.0-18.0); LYMPHOCYTES # (AUTO) 1.6 (1.0-3.2); LYMPHOCYTES % 21.6 % (18.0-39.1); MEAN CORPUSCULAR HEMOGLOBIN 28.1 pg (28-32); MEAN CORPUSCULAR HGB CONC 32.1 g/dL (31-35); MEAN CORPUSCULAR VOLUME 87.5 fL (81-99); MONOCYTES # (AUTO) 0.6 (0.2-0.8); MONOCYTES % 7.8 % (4.4-11.3); NEUTROPHILS # (AUTO) 4.8 (2.1-6.9); NEUTROPHILS % 65.7 % (38.7-80.0); PLATELET COUNT 312 x10e3/uL (140-360); WHITE BLOOD COUNT 7.35 x10e3/uL (4.8-10.8)
[2024-09-15 14:21] LABS: ANION GAP 13.9 mmol/L (8-16); CALCIUM 8.8 mg/dL (8.4-10.2); CREATININE, SERUM 1.39 mg/dL (0.72-1.25); POTASSIUM 3.9 mmol/L (3.5-5.1)
[2024-09-16] VITALS (9 sets, daily range): BP systolic 142–157; BP diastolic 85–96; PULSE 73–83; RESP 16–20; TEMP 97.8–98.7; O2SAT 97–100
[2024-09-16] MEDS: HYDROCODONE/APAP 5MG-325MG TAB PO PRN (20:48)
[2024-09-17] VITALS (7 sets, daily range): BP systolic 130–167; BP diastolic 76–89; PULSE 72–85; RESP 16–18; TEMP 97.7–99; O2SAT 99–100
[2024-09-17] MEDS: CARVEDILOL 12.5 MG TAB PO SCH (17:07)
[2024-09-17] MEDS: INSULIN GLARGINE 100 UNITS/ML VIAL SQ SCH (20:33)
[2024-09-18] VITALS: BP 165/85; PULSE 85; RESP 18; TEMP 97.9; O2SAT 100
[2024-09-18 07:20] LABS: ANION GAP 12.7 mmol/L (8-16); POTASSIUM 3.7 mmol/L (3.5-5.1)
[2024-09-18 07:21] LABS: BLOOD UREA NITROGEN 13.38 mg/dL (7-26); CALCIUM 8.8 mg/dL (8.4-10.2); CREATININE, SERUM 1.27 mg/dL (0.72-1.25)
[2024-09-18 07:39] VITALS: PULSE 76; RESP 16; O2SAT 98
[2024-09-18 07:50] LABS: WHITE BLOOD COUNT 7.17 x10e3/uL (4.8-10.8)
[2024-09-18 07:51] LABS: BASOPHILS # (AUTO) 0.1 (0.0-0.1); BASOPHILS % 0.8 % (0.0-1.0); EOSINOPHILS # (AUTO) 0.4 (0.0-0.4); EOSINOPHILS % 5.2 % (0.0-6.0); HEMATOCRIT 27.2 % (38.2-49.6); HEMOGLOBIN 8.9 g/dL (14.0-18.0); LYMPHOCYTES % 27.5 % (18.0-39.1); MEAN CORPUSCULAR HEMOGLOBIN 28.3 pg (28-32); MEAN CORPUSCULAR HGB CONC 32.7 g/dL (31-35); MEAN CORPUSCULAR VOLUME 86.6 fL (81-99); MONOCYTES # (AUTO) 0.7 (0.2-0.8); NEUTROPHILS % 55.5 % (38.7-80.0); PLATELET COUNT 295 x10e3/uL (140-360); RED BLOOD COUNT 3.14 x10e6/uL (4.3-5.7); RED CELL DISTRIBUTION WIDTH 14.1 % (11.7-14.4)
[2024-09-18 09:16] VITALS: BP 153/87; PULSE 78; RESP 18; TEMP 98.1; O2SAT 100
[2024-09-18 12:53] VITALS: BP 168/83; PULSE 80; RESP 18; TEMP 97.8; O2SAT 100
[2024-09-18 14:17] VITALS: PULSE 72; RESP 16; O2SAT 96
== END 2024-09-18 17:40 | DRG 854 ==
LOC: ER 18:56 → ERHOLD 18:58 → MED/SURG3 21:55
PROVIDERS: ADMIT Internal Medicine; ATTEND Internal Medicine
PROC: 3E0333Z Introduction of Anti-inflammatory into Peripheral Vein, Percutaneous Approach (ICD-10-PCS; 2024-09-08)
PROC: 047Q3ZZ Dilation of Left Anterior Tibial Artery, Percutaneous Approach (ICD-10-PCS; principal; 2024-09-10)
PROC: B41D1ZZ Fluoroscopy of Aorta and Bilateral Lower Extremity Arteries using Low Osmolar Contrast (ICD-10-PCS; 2024-09-10)
PROC: 0QBM3ZX Excision of Left Tarsal, Percutaneous Approach, Diagnostic (ICD-10-PCS; 2024-09-11)
PROC: 079T3ZX Drainage of Bone Marrow, Percutaneous Approach, Diagnostic (ICD-10-PCS; 2024-09-11)
PROC: 30233N1 Transfusion of Nonautologous Red Blood Cells into Peripheral Vein, Percutaneous Approach (ICD-10-PCS; 2024-09-11)
PROC: 02HV33Z Insertion of Infusion Device into Superior Vena Cava, Percutaneous Approach (ICD-10-PCS; 2024-09-15)
DX: B37.7 Candidal sepsis (principal); I70.92 Chronic total occlusion of artery of the extremities; M00.9 Pyogenic arthritis, unspecified; L97.318 Non-pressure chronic ulcer of right ankle with other specified severity; L97.518 Non-pressure chronic ulcer of other part of right foot with other specified severity; M86.9 Osteomyelitis, unspecified; E11.621 Type 2 diabetes mellitus with foot ulcer; E11.69 Type 2 diabetes mellitus with other specified complication; I12.9 Hypertensive chronic kidney disease with stage 1 through stage 4 chronic kidney disease, or unspecified chronic kidney disease; E11.22 Type 2 diabetes mellitus with diabetic chronic kidney disease; E11.51 Type 2 diabetes mellitus with diabetic peripheral angiopathy without gangrene; E11.42 Type 2 diabetes mellitus with diabetic polyneuropathy; N18.30 Chronic kidney disease, stage 3 unspecified; E78.00 Pure hypercholesterolemia, unspecified; D50.9 Iron deficiency anemia, unspecified; Z79.4 Long term (current) use of insulin; Z79.02 Long term (current) use of antithrombotics/antiplatelets; Z89.422 Acquired absence of other left toe(s)
CPT/HCPCS: 36247; 36415; 36569; 37228; 37232; 71045; 75625; 75710; 80048; 80053; 80061; 80202; 81001; 82270; 82607; 82728; 82746; 82948; 83036; 83540; 83605; 84443; 84466; 85025; 85610; 85730; 86850; 86900; 86920; 87040; 87071; 87075; 87086; 87205; 88112; 88305; 93005; 93306; 93925; 93971; 94799; 96372; 99152; 99153; 99252; 99284; C1725; C1769; C1887; C1894; J0360; J0583; J1644; J1650; J1756; J2003; J2248; J2250; J2543; J7030; J7050; P9016; Q9967

== ENCOUNTER 2024-10-06 15:18 | Emergency (ER) | payer OTHER ==
[~2024-10-06] VITALS: Ht 170.2 cm; Wt 70.3 kg
[2024-10-06 15:53] VITALS: PULSE 89; RESP 18; TEMP 98.1
[2024-10-06 17:38] LABS: BASOPHILS # (AUTO) 0.1 (0.0-0.1); BASOPHILS % 0.8 % (0.0-1.0); EOSINOPHILS # (AUTO) 0.3 (0.0-0.4); EOSINOPHILS % 2.7 % (0.0-6.0); HEMATOCRIT 33.6 % (38.2-49.6); HEMOGLOBIN 11.1 g/dL (14.0-18.0); LYMPHOCYTES # (AUTO) 1.2 (1.0-3.2); LYMPHOCYTES % 12.2 % (18.0-39.1); MEAN CORPUSCULAR HEMOGLOBIN 27.8 pg (28-32); MEAN CORPUSCULAR VOLUME 84.2 fL (81-99); MONOCYTES % 10.4 % (4.4-11.3); PLATELET COUNT 267 x10e3/uL (140-360); RED BLOOD COUNT 3.99 x10e6/uL (4.3-5.7); RED CELL DISTRIBUTION WIDTH 13.9 % (11.7-14.4); WHITE BLOOD COUNT 9.57 x10e3/uL (4.8-10.8)
[2024-10-06 18:58] LABS: ALBUMIN 2.4 g/dL (3.5-5.0); ALBUMIN/GLOBULIN RATIO 0.4 (0.8-2.0); ANION GAP 17.6 mmol/L (8-16); BILIRUBIN,TOTAL 0.3 mg/dL (0.2-1.2); CALCIUM 9.4 mg/dL (8.4-10.2); CREATININE, SERUM 1.8 mg/dL (0.72-1.25); POTASSIUM 4.6 mmol/L (3.5-5.1); TOTAL PROTEIN 7.9 g/dL (6.5-8.1)
[2024-10-06] MEDS ORDERED: SODIUM CHLORIDE 0.9% 1000ML 1,000 ML ONE (19:09)
[2024-10-06] MEDS: SODIUM CHLORIDE 0.9% 1000ML 1,000 ML IV ONE (19:14)
[2024-10-06] MEDS: AMOXICILLIN/CLAVULANATE K 875 MG TAB PO STA (19:15)
[2024-10-06] MEDS ORDERED: DIFLUCAN100 MG PO (19:17)
[2024-10-06] MEDS ORDERED: AMOX TR-K CLV1 EAC2 PO (19:17)
[2024-10-06 21:19] VITALS: BP 127/65; PULSE 74; RESP 18; TEMP 98.2; O2SAT 98
== END 2024-10-06 21:00 | disposition home or self-care (01) ==
LOC: ER 18:27
DX: M86.8X7 Other osteomyelitis, ankle and foot (principal); E11.40 Type 2 diabetes mellitus with diabetic neuropathy, unspecified; E11.65 Type 2 diabetes mellitus with hyperglycemia
CPT/HCPCS: 36415; 80053; 85025; 99284; J7030

== ENCOUNTER 2024-10-09 16:54 | Emergency (ER) | payer SELFPAY ==
[~2024-10-09] VITALS: Ht 170.2 cm; Wt 70.3 kg
[~2024-10-09 16:54] MED LIST changes: +AMOX TR-K CLV1 EAC2 PO; +DIFLUCAN100 MG PO
[2024-10-09 17:00] VITALS: TEMP 98.2
[2024-10-09 18:53] VITALS: PULSE 87; RESP 16; O2SAT 99
== END 2024-10-09 19:34 | disposition left against medical advice (07) ==
LOC: ER 19:28
DX: N28.9 Disorder of kidney and ureter, unspecified (principal)

== ENCOUNTER → 2024-11-19 | Day surgery (SDC) | payer OTHER ==
[~2024-11-19] MED LIST changes: +ATORVASTATIN CA10 MG PO; +FENTANYL CITRATE/PF 100MCG/2 ML INJ ONE; +HYOSCYAMINE SULFATE 0.5 MG/ML INJ ONE; +LIDOCAINE HCL 2% LOCAL INJ 5 ML SDV VIAL INJ ONE; +LOSARTAN POTASS25 MG PO; +LYUMJEV100 UNIT/1 SC; +PROPOFOL IV EMULSION 10 MG/ML 20 ML VIAL ONE; +SEMGLEE (Y100 UNIT/2 SC
[2024-11-19] MEDS: LACTATED RINGER'S 1,000 ML ONE (13:16)
[2024-11-19 15:08] VITALS: TEMP 98.2
[2024-11-19 15:35] VITALS: BP 110/71; PULSE 74; RESP 16; O2SAT 97
[2024-11-25 08:12] LABS: ENDOMYSIAL ANTIBODIES, IGA Negative (Negative)
[2024-11-25 08:15] LABS: IMMUNOGLOBULIN A 372 mg/dL (90-386); TISSUE TRANSGLUTAMINASE IGA AB <2 U/mL (0-3)
== END | disposition home or self-care (01) ==
LOC: OR 12:52
PROVIDERS: ATTEND Internal Medicine Gastroenterology
DX: D50.9 Iron deficiency anemia, unspecified (principal); D12.2 Benign neoplasm of ascending colon; D12.3 Benign neoplasm of transverse colon; D12.5 Benign neoplasm of sigmoid colon; D36.10 Benign neoplasm of peripheral nerves and autonomic nervous system, unspecified; K31.7 Polyp of stomach and duodenum; K29.50 Unspecified chronic gastritis without bleeding; K31.89 Other diseases of stomach and duodenum; K20.90 Esophagitis, unspecified without bleeding; K62.5 Hemorrhage of anus and rectum; K44.9 Diaphragmatic hernia without obstruction or gangrene; K64.8 Other hemorrhoids; D64.89 Other specified anemias; E11.9 Type 2 diabetes mellitus without complications; R03.0 Elevated blood-pressure reading, without diagnosis of hypertension; Z71.89 Other specified counseling; Z79.84 Long term (current) use of oral hypoglycemic drugs; Z79.4 Long term (current) use of insulin; Z79.899 Other long term (current) drug therapy; Z89.422 Acquired absence of other left toe(s); Z68.24 Body mass index [BMI] 24.0-24.9, adult; Z71.3 Dietary counseling and surveillance
CPT/HCPCS: 36415; 43239; 43251; 45385; 82784; 82948; 83516; 86256; 93005; J1980; J2003; J2470; J2704; J3010; J7121; 45378

== ENCOUNTER 2024-12-07 11:57 | Observation (INO) | payer OTHER ==
[~2024-12-07] VITALS: Ht 170.2 cm; Wt 73.6 kg
[~2024-12-07 11:57] MED LIST changes: -ATORVASTATIN CA10 MG PO; -FENTANYL CITRATE/PF 100MCG/2 ML INJ ONE; -HYOSCYAMINE SULFATE 0.5 MG/ML INJ ONE; -LIDOCAINE HCL 2% LOCAL INJ 5 ML SDV VIAL INJ ONE; -LOSARTAN POTASS25 MG PO; -PROPOFOL IV EMULSION 10 MG/ML 20 ML VIAL ONE
[2024-12-07] MEDS ORDERED: DEXTROSE 50% SYRINGE 50 ML IV ONE (11:59)
[2024-12-07] MEDS ORDERED: SODIUM CHLORIDE 0.9% 1000ML 1,000 ML ONE (12:00)
[2024-12-07] MEDS: SODIUM CHLORIDE 0.9% 1000ML 1,000 ML IV STA (12:13)
[2024-12-07] MEDS: DEXTROSE 50% SYRINGE 50 ML IV STA ×2 (12:14→13:06)
[2024-12-07 12:17] LABS: BASOPHILS # (AUTO) 0.1 (0.0-0.1); BASOPHILS % 0.7 % (0.0-1.0); EOSINOPHILS # (AUTO) 0.3 (0.0-0.4); EOSINOPHILS % 3.1 % (0.0-6.0); HEMOGLOBIN 11.4 g/dL (14.0-18.0); LYMPHOCYTES # (AUTO) 3.7 (1.0-3.2); LYMPHOCYTES % 34.1 % (18.0-39.1); MEAN CORPUSCULAR HEMOGLOBIN 28.4 pg (28-32); MEAN CORPUSCULAR HGB CONC 32.6 g/dL (31-35); MEAN CORPUSCULAR VOLUME 87.3 fL (81-99); MONOCYTES # (AUTO) 0.9 (0.2-0.8); MONOCYTES % 8.5 % (4.4-11.3); NEUTROPHILS # (AUTO) 5.7 (2.1-6.9); NEUTROPHILS % 52.7 % (38.7-80.0); PLATELET COUNT 335 x10e3/uL (140-360); RED BLOOD COUNT 4.01 x10e6/uL (4.3-5.7); RED CELL DISTRIBUTION WIDTH 15.6 % (11.7-14.4); WHITE BLOOD COUNT 10.83 x10e3/uL (4.8-10.8)
[2024-12-07] MEDS: DEXTROSE 5%/0.45% SOD CHL 1,000 ML IV ONE (12:21)
[2024-12-07 12:50] LABS: ALANINE AMINOTRANSFERASE 13 IU/L (0-55); ALBUMIN 3.1 g/dL (3.5-5.0); ALBUMIN/GLOBULIN RATIO 0.6 (0.8-2.0); ALKALINE PHOSPHATASE 121 IU/L (40-150); ANION GAP 16.3 mmol/L (8-16); BILIRUBIN,TOTAL 0.1 mg/dL (0.2-1.2); BLOOD UREA NITROGEN 30 mg/dL (7-26); BUN/CREATININE RATIO 19 (6-25); CALCIUM 9.1 mg/dL (8.4-10.2); CARBON DIOXIDE 20 mmol/L (22-29); CHLORIDE 105 mmol/L (98-107); CREATININE, SERUM 1.58 mg/dL (0.72-1.25); EST GLOMERULAR FILTRATION RATE 51 ML/MIN (>=60); POTASSIUM 3.3 mmol/L (3.5-5.1); SODIUM 138 mmol/L (136-145); TOTAL PROTEIN 8.4 g/dL (6.5-8.1)
[2024-12-07 12:51] LABS: GLUCOSE 27 mg/dL (74-118)
[2024-12-07 12:59] LABS: INR 0.89; PROTHROMBIN TIME 12.6 seconds (11.9-14.5)
[2024-12-07 13:02] LABS: TROPONIN I < 0.001 ng/mL (0-0.300)
[2024-12-07] MEDS ORDERED: DEXTROSE 50% SYRINGE 50 ML IV PRN (14:00)
[2024-12-07] MEDS ORDERED: ONDANSETRON HCL INJ 2MG/ML 2ML 2 MG/ML VIAL IV PRN (14:00)
[2024-12-07 14:15] VITALS: TEMP 97
[2024-12-07 14:30] VITALS: PULSE 74; RESP 15
[2024-12-07 16:10] VITALS: BP 160/100; PULSE 76; RESP 19; TEMP 97.3; O2SAT 100
[2024-12-07 17:30] VITALS: BP 160/100; PULSE 76; RESP 19; TEMP 97.3; O2SAT 100
[2024-12-07 20:00] VITALS: BP 190/95; PULSE 82; RESP 20; TEMP 97.6; O2SAT 100
[2024-12-07] MEDS: HYDRALAZINE HCL 20 MG/ML VIAL IV PRN (21:14)
[2024-12-08] VITALS: BP 131/74; PULSE 82; RESP 20; TEMP 98.1; O2SAT 97
[2024-12-08 05:19] LABS: BASOPHILS % 0.5 % (0.0-1.0); EOSINOPHILS # (AUTO) 0.2 (0.0-0.4); EOSINOPHILS % 2.4 % (0.0-6.0); HEMATOCRIT 30.3 % (38.2-49.6); LYMPHOCYTES # (AUTO) 1.5 (1.0-3.2); LYMPHOCYTES % 17.8 % (18.0-39.1); MEAN CORPUSCULAR HEMOGLOBIN 28.6 pg (28-32); MEAN CORPUSCULAR VOLUME 86.6 fL (81-99); MONOCYTES # (AUTO) 0.6 (0.2-0.8); MONOCYTES % 7.3 % (4.4-11.3); NEUTROPHILS % 71.3 % (38.7-80.0); PLATELET COUNT 261 x10e3/uL (140-360); RED CELL DISTRIBUTION WIDTH 15.8 % (11.7-14.4); WHITE BLOOD COUNT 8.37 x10e3/uL (4.8-10.8)
[2024-12-08 05:50] LABS: ALBUMIN 2.5 g/dL (3.5-5.0); ALBUMIN/GLOBULIN RATIO 0.6 (0.8-2.0); ANION GAP 12.5 mmol/L (8-16); BILIRUBIN,TOTAL 0.1 mg/dL (0.2-1.2); CREATININE, SERUM 1.25 mg/dL (0.72-1.25); POTASSIUM 4.5 mmol/L (3.5-5.1)
[2024-12-08 08:27] VITALS: BP 144/73; PULSE 83; RESP 19; TEMP 98.2; O2SAT 98
[2024-12-08 08:29] VITALS: BP 138/77; PULSE 83; RESP 19; TEMP 98.2; O2SAT 100
[2024-12-08 09:00] VITALS: BP 138/77; PULSE 83; RESP 19; TEMP 98.2; O2SAT 100
[2024-12-08 11:55] VITALS: BP 169/85; PULSE 80; RESP 19; TEMP 98.1; O2SAT 100
[2024-12-08] MEDS ORDERED: ATORVASTATIN CA10 MG PO (12:51)
[2024-12-08] MEDS ORDERED: LOSARTAN POTASS25 MG PO (12:51)
== END 2024-12-08 13:56 | disposition home or self-care (01) ==
LOC: ER 12:12 → ERHOLD 14:00 → MED/SURG2 15:58
PROVIDERS: ADMIT Internal Medicine; ATTEND Internal Medicine
DX: E11.22 Type 2 diabetes mellitus with diabetic chronic kidney disease (principal); E11.649 Type 2 diabetes mellitus with hypoglycemia without coma; N18.9 Chronic kidney disease, unspecified; E11.52 Type 2 diabetes mellitus with diabetic peripheral angiopathy with gangrene; I70.269 Atherosclerosis of native arteries of extremities with gangrene, unspecified extremity; Z79.4 Long term (current) use of insulin; Z79.84 Long term (current) use of oral hypoglycemic drugs
CPT/HCPCS: 36415 ×2; 70450; 71045; 72125; 80053 ×2; 82948 ×2; 84484; 85025 ×2; 85610; 85730; 93005; 99284; G0378 ×2; J0360; J7030; J7799

== ENCOUNTER → 2025-01-12 | Outpatient (REF) | payer OTHER ==
[~2025-01-12] MED LIST changes: +ATORVASTATIN CA10 MG PO; +LOSARTAN POTASS25 MG PO
== END ==
LOC: DX 08:12
PROVIDERS: ATTEND Nurse Practitioner
DX: D64.9 Anemia, unspecified (principal)
CPT/HCPCS: 74250